=== PATIENT | female | born 1945 | race African-American/Black ===

== ENCOUNTER 2019-09-09 15:57 | Emergency (ER) | payer OTHER ==
[~2019-09-09] VITALS: Ht 162.6 cm; Wt 86.0 kg
[2019-09-09 16:31] VITALS: BP 110/54
== END 2019-09-09 18:29 | disposition home or self-care (01) ==
LOC: ER 15:57
DX: M62.830 Muscle spasm of back (principal); I10 Essential (primary) hypertension; E11.9 Type 2 diabetes mellitus without complications; E78.00 Pure hypercholesterolemia, unspecified; V49.9XXA Car occupant (driver) (passenger) injured in unspecified traffic accident, initial encounter; Y93.9 Activity, unspecified; Y92.410 Unspecified street and highway as the place of occurrence of the external cause; Z85.42 Personal history of malignant neoplasm of other parts of uterus
CPT/HCPCS: 99281